=== PATIENT | male | born 1975 | race Caucasian/White ===

== ENCOUNTER 2023-05-01 20:59 | Emergency (ER) | payer SELFPAY ==
[~2023-05-01] VITALS: Ht 198.1 cm; Wt 99.8 kg
[~2023-05-01 20:59] MED LIST: ALBU90OI61 INH; ARTTEAOPSB OP; HYDACE5 PO; IBUP200; IBUP400 PO; NAPR550 PO; OPTLUBOPOA OS; PRED10 PO; RXERYTOPTH OP; VALA500 PO; Zithromax250 MG PO
[2023-05-01 21:14] VITALS: BP 130/87
== END 2023-05-01 22:13 | disposition home or self-care (01) ==
LOC: ER 20:59
DX: S62.366A Nondisplaced fracture of neck of fifth metacarpal bone, right hand, initial encounter for closed fracture (principal); W22.8XXA Striking against or struck by other objects, initial encounter; Z79.899 Other long term (current) drug therapy
CPT/HCPCS: 73130